=== PATIENT | female | born 1940 | race Asian ===

== ENCOUNTER 2022-11-08 17:33 | Inpatient (IN) | payer OTHER ==
[~2022-11-08] VITALS: Ht 152.4 cm; Wt 45.4 kg
[~2022-11-08 17:33] MED LIST: UNK BP MED; [UNRECOGNIZED DRUG - REMARK]
[2022-11-08 17:39] VITALS: BP 141/86
--- NOTE | 2022-11-08 17:40 | NUR ---
BIBA BLS TO ER BED 2
[2022-11-08] MEDS ORDERED: NACL 0.9% 1,000 ML IV ONE (18:00)
[2022-11-08] MEDS ORDERED: ONDANSETRON 4 MG/2 ML VIAL IVP ONE (18:00)
--- NOTE | 2022-11-08 18:40 | NUR ---
DAUGHTER CALLED YELENA [phone]
[2022-11-08 18:45] LABS: BASOPHILS # (AUTO) 0.1 K/uL (0.00-0.22); EOSINOPHILS % (AUTO) 0.2 % (0.0-4.0); HEMATOCRIT 26.2 % (36-48); LYMPHOCYTES # (AUTO) 0.5 K/uL (2.5-16.5); LYMPHOCYTES % (AUTO) 7.3 % (20.5-51.1); MEAN CORPUSCULAR HEMOGLOBIN 21 pg (27-31); MEAN CORPUSCULAR HGB CONC 30 g/dL (33-37); MEAN CORPUSCULAR VOLUME 70.2 fL (80-94); MONOCYTES # (AUTO) 0.3 K/uL (0.8-1.0); MONOCYTES % (AUTO) 4.4 % (1.7-9.3); NEUTROPHILS % (AUTO) 87.1 % (42.2-75.2); PLATELET COUNT (AUTO) 305 K/uL (140-450); RED BLOOD CELL COUNT(AUTO) 3.74 MIL/uL (4.20-5.40); WHITE BLOOD COUNT (AUTO) 6.9 K/uL (4.8-10.8)
[2022-11-08 19:16] LABS: ANION GAP 10.8 (8-16); ASPARTATE AMINOTRANSFERASE 19 U/L (15-37); CARBON DIOXIDE 27.6 mmol/L (21-32); CHLORIDE 104 mmol/L (98-107); CREATININE 0.7 mg/dL (0.6-1.3); GLUCOSE 172 mg/dL (74-106); LIPASE 138 U/L (73-393); POTASSIUM 3.4 mmol/L (3.5-5.1); SODIUM SERUM 139 mmol/L (136-145); TOTAL BILIRUBIN 0.6 mg/dL (0.0-1.0); UREA NITROGEN, BLOOD 13 mg/dL (7-18)
[2022-11-08 19:38] LABS: APPEARANCE,URINE CLEAR (CLEAR); BILIRUBIN,URINE NEGATIVE (NEGATIVE); BLOOD, URINE NEGATIVE (NEGATIVE); LEUKOCYTE ESTERASE ,URINE NEGATIVE (NEGATIVE); NITRITE, URINE NEGATIVE (NEGATIVE); PH,URINE 7.5 (5.0-9.0); UGLUCOSE NEGATIVE (NEGATIVE)
[2022-11-08 19:46] LABS: COLOR,URINE STRAW (YELLOW)
[2022-11-08] MEDS ORDERED: ONDANSETRON 4 MG/2 ML VIAL IVP PRN ×2 (19:50→22:15)
[2022-11-08] MEDS ORDERED: PANTOPRAZOLE 40 MG INJ VIAL IVP ONE (19:50)
[2022-11-08] MEDS ORDERED: PANTOPRAZOLE 40 MG INJ VIAL ONE (21:11)
--- NOTE | 2022-11-08 21:13 | NUR ---
pt switched to bed [address]
--- NOTE | 2022-11-08 21:33 | NUR ---
Keya Leyva the daughter for patient called. Asked pt for consent to disclose information- per patient it is okay to give information to daughter.
--- NOTE | 2022-11-08 22:00 | NUR ---
pt ambulatory to restroom
--- NOTE | 2022-11-08 22:08 | NUR ---
pt back in room and on cadia monitor
--- NOTE | 2022-11-09 00:30 | NUR ---
pt ambulatory to restroom
--- NOTE | 2022-11-09 00:37 | NUR ---
pt back in room and on quality assurance monitor
[2022-11-09] MEDS: NACL 0.9% 1,000 ML IV SCH ×2 (00:50→08:55)
--- NOTE | 2022-11-09 02:45 | NUR ---
pt stated "why cant i have food, i am so hungry i feel faint, i came here to just starve."
--- NOTE | 2022-11-09 02:45 | NUR ---
pt is yelling from her room "shut up" in reference to the monitors in ER
--- NOTE | 2022-11-09 02:55 | NUR ---
pt stated " shut those monitors off, the noise is too much. the monitors are speaking to each other in code. the pt does not need that many monitors."
--- NOTE | 2022-11-09 03:00 | NUR ---
pt stated "i am hungry why cant i have jell-o." "you are starving me'
--- NOTE | 2022-11-09 05:57 | NUR ---
pt ambulatory to restroom
--- NOTE | 2022-11-09 06:05 | NUR ---
pt back in room and on cadia monitor
--- NOTE | 2022-11-09 07:30 | NUR ---
Pt report given to Steffanie PARISH. Transfer of care at this time.
--- NOTE | 2022-11-09 08:02 | NUR ---
Patient will be admitted to care of dr pool. Admited to Med/Surg. Will go to room. Belongings list completed. Report to .
[2022-11-09 08:22] VITALS: BP 144/75
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
--- NOTE | 2022-11-09 08:41 | NUR ---
PATIENT ASKING FOR PO DIET ORDER. EDUCATION / EXPLANATION ABOUT NPO.
== END 2022-11-09 13:10 | disposition home or self-care (01) | DRG 392 ==
LOC: MED 17:33 → MTU 22:19
PROVIDERS: ADMIT Family Medicine; ATTEND Family Medicine
DX: A08.4 Viral intestinal infection, unspecified (principal); R65.10 Systemic inflammatory response syndrome (SIRS) of non-infectious origin without acute organ dysfunction; E44.1 Mild protein-calorie malnutrition; Z68.1 Body mass index [BMI] 19.9 or less, adult; R11.2 Nausea with vomiting, unspecified; I10 Essential (primary) hypertension; J45.909 Unspecified asthma, uncomplicated; E87.6 Hypokalemia; D64.9 Anemia, unspecified; Z20.822 Contact with and (suspected) exposure to COVID-19
CPT/HCPCS: 36415; 80053; 81003; 83605; 83690; 85025; 87040; 96361; 96374; 96375; 99285; C9113; J2405